=== PATIENT | male | born 1935 | race Caucasian/White ===

== ENCOUNTER 2021-09-02 11:32 | Emergency (ER) | payer OTHER, MEDICARE ==
[~2021-09-02] VITALS: Ht 182.9 cm; Wt 95.5 kg
[~2021-09-02 11:32] MED LIST: ALB0.5UD IH; ALBU18HF2 IH; BUDE10.2 INH; CARV3.1289 PO; CHOL100046 PO; DAPT500V6 IV; DILT-91 PO; LOSA25TA96 PO; MULT-1085 PO; SPIIN INH; WARF-113 PO; [UNRECOGNIZED DRUG - OTHER] NS
[2021-09-02] MEDS ORDERED: methylPREDNISolone sod succ 125mg/2ml vial IV ONE (11:55)
[2021-09-02] MEDS ORDERED: albuterol 2.5 MG/3 ML nebule CONTNEB PRN (11:55)
[2021-09-02 12:15] LABS: BASOPHILS % (AUTO) 0.4 % (0-1); EOSINOPHILS # (AUTO) 0.1 X10'3 (0-0.9); EOSINOPHILS % (AUTO) 1.5 % (0-6); HEMATOCRIT 38.9 % (42.0-52.0); HEMOGLOBIN 12.7 g/dl (14.0-17.9); LYMPHOCYTES # (AUTO) 0.5 X10'3 (1.1-4.8); LYMPHOCYTES % (AUTO) 7.1 % (21-51); MEAN CORPUSCULAR HEMOGLOBIN 28.4 PG (27.0-31.0); MEAN CORPUSCULAR HGB CONC 32.8 g/dL (33.0-36.5); MEAN CORPUSCULAR VOLUME 86.8 FL (78-98); MEAN PLATELET VOLUME 8.4 FL (7.4-10.4); MONOCYTES # (AUTO) 0.7 X10'3 (0-0.9); MONOCYTES % (AUTO) 10.1 % (2-12); NEUTROPHILS # (AUTO) 5.7 X10'3 (1.8-7.7); NEUTROPHILS % (AUTO) 80.9 % (42-75); PLATELET COUNT 193 X10'3 (140-440); RED BLOOD COUNT 4.48 X10'6 (4.70-6.10); RED CELL DISTRIBUTION WIDTH 15.7 % (11.5-14.5); WHITE BLOOD COUNT 7.1 X10'3 (4.5-11.0)
[2021-09-02 12:31] LABS: ALANINE AMINOTRANSFERASE 24 U/L (12-78); ALBUMIN 3.3 G/DL (3.4-5.0); ALBUMIN/GLOBULIN RATIO 0.9 (1.1-1.5); ALKALINE PHOSPHATASE 44 IU/L (46-116); ANION GAP 7 (8-16); ASPARTATE AMINO TRANSFERASE 18 U/L (10-37); BLOOD UREA NITROGEN 16 MG/DL (7-18); BUN/CREATININE RATIO 18.4 (5.4-32.0); CALCIUM 8.8 MG/DL (8.5-10.1); CHLORIDE 101 MMOL/L (99-107); CREATININE 0.87 MG/DL (0.60-1.10); GLUCOSE 107 MG/DL (70-104); POTASSIUM 4.2 MMOL/L (3.5-5.1); SODIUM 136 MMOL/L (135-145); TOTAL CARBON DIOXIDE 27.7 MMOL/L (24-32); TOTAL PROTEIN 6.9 G/DL (6.4-8.2); eGFR 84 ML/MIN
[2021-09-02 12:39] LABS: BILIRUBIN,TOTAL 0.7 MG/DL (0.1-1.0)
[2021-09-02] MEDS ORDERED: furosemide 10 MG/1 ML 10ml inj IV ONE (12:55)
--- NOTE | 2021-09-02 13:03 | NUR ---
PT USING URINAL AT THIS TIME. AT THE BEDSIDE.
[2021-09-02] MEDS ORDERED: ipratropium/albuterol 3ml nebule NEB ONE (13:25)
[2021-09-02 14:18] VITALS: BP 152/92
== END 2021-09-02 14:37 | disposition home or self-care (01) ==
LOC: ER 11:33
DX: J45.901 Unspecified asthma with (acute) exacerbation (principal); J96.10 Chronic respiratory failure, unspecified whether with hypoxia or hypercapnia; I48.91 Unspecified atrial fibrillation; I10 Essential (primary) hypertension; Z87.01 Personal history of pneumonia (recurrent); Z86.718 Personal history of other venous thrombosis and embolism; Z88.1 Allergy status to other antibiotic agents; Z88.8 Allergy status to other drugs, medicaments and biological substances; Z79.899 Other long term (current) drug therapy
CPT/HCPCS: 36415; 71045; 80053; 83880; 85025; 93005; 94640; 94644; 96374; 96375; 99285; J1940; J2930; 94760; A7015

== ENCOUNTER 2023-02-27 05:35 | Day surgery (SDC) | payer MEDICARE, OTHER ==
[2023-02-21 14:37] LABS: BASOPHILS % (AUTO) 0.2 % (0-1); EOSINOPHILS % (AUTO) 0.5 % (0-6); LYMPHOCYTES # (AUTO) 0.5 X10'3 (1.1-4.8); LYMPHOCYTES % (AUTO) 6.4 % (21-51); MEAN CORPUSCULAR HEMOGLOBIN 28.7 PG (27.0-31.0); MEAN CORPUSCULAR HGB CONC 32.4 g/dL (33.0-36.5); MEAN CORPUSCULAR VOLUME 88.4 FL (78-98); MEAN PLATELET VOLUME 8.3 FL (7.4-10.4); MONOCYTES # (AUTO) 0.4 X10'3 (0-0.9); MONOCYTES % (AUTO) 5.7 % (2-12); NEUTROPHILS # (AUTO) 6.8 X10'3 (1.8-7.7); NEUTROPHILS % (AUTO) 87.2 % (42-75); PRE OP HEMATOCRIT 38.1 % (42.0-52.0); PRE OP HEMOGLOBIN 12.3 g/dL (14.0-17.9); PRE OP PLATELET COUNT 206 X10'3 (140-440); RED BLOOD COUNT 4.31 X10'6 (4.70-6.10); RED CELL DISTRIBUTION WIDTH 16.2 % (11.5-14.5)
[2023-02-21 14:52] LABS: ALBUMIN 3.3 G/DL (3.4-5.0); ALKALINE PHOSPHATASE 48 IU/L (46-116); BLOOD UREA NITROGEN 18 MG/DL (7-18); BUN/CREATININE RATIO 19.1 (10.0-20.0); CALCIUM 9.1 MG/DL (8.5-10.1); CHLORIDE 103 MMOL/L (99-107); CREATININE 0.94 MG/DL (0.60-1.10); PRE OP ALT 25 U/L (30-65); PRE OP ANION GAP 7 (8-16); PRE OP AST 19 U/L (10-37); PRE OP GLUCOSE 128 MG/DL (70-104); PRE OP POTASSIUM 4.6 MMOL/L (3.4-5.1); PRE OP SODIUM 139 MMOL/L (135-145); TOTAL CARBON DIOXIDE 29.5 MMOL/L (24-32); TOTAL PROTEIN 6.6 G/DL (6.4-8.2); eGFR 76 ML/MIN
[2023-02-21 14:58] LABS: PRE OP BILIRUB, TOTAL 0.4 MG/DL (0.0-1.0)
[2023-02-27] VITALS (8 sets, daily range): BP systolic 130–144; BP diastolic 82–96
[~2023-02-27] VITALS: Ht 218.4 cm; Wt 106.6 kg
[~2023-02-27 05:35] MED LIST changes: +ALEN70TA60 PO; -BUDE10.2 INH; -CARV3.1289 PO; +DABI150C PO; -DAPT500V6 IV; -DILT-91 PO; +FLUT1BLS9 INH; -MULT-1085 PO; +PREDNISONE PO; -WARF-113 PO; -[UNRECOGNIZED DRUG - OTHER] NS; +clindamycin-Cleocin 900mg/D5W 50 ML IV ONE; +famotidine 20mg tablet PO ONE; +ringers solution, lacted 1,000 ML IV SCH
[2023-02-27] MEDS ORDERED: BUPIVAcaine/PF 2.5 mg/ml (0.25%) 30ml vial ONE (06:43)
[2023-02-27] MEDS ORDERED: LIDOcaine 1% 30ml preserv. free vial ONE (08:14)
[2023-02-27] MEDS ORDERED: fentaNYL/PF 50MCG/1 ML 2ML syringe ONE (08:23)
[2023-02-27] MEDS ORDERED: MIDAZolam 1 MG/ML 5ML VIAL ONE (08:24)
[2023-02-27] MEDS ORDERED: BUPIVAcaine/PF 2.5 mg/ml (0.25%) 30ml vial IJ ONE (08:47)
--- NOTE | 2023-02-27 09:02 | NUR ---
Received from OR via [facility] to [facility] , accompanied by Anesthesiologist DR MENDOZA and report given by Anesthesiolgist. PT PRESENT RYAN PIV 20G LEFT AC, RIGHT HAND DRESSING AND RIGHT ELBOW DRESSING CDI, VSS. Addendum: 02/27/23 at 0913 by Benita Bender RN, RN Amended: Links added.
--- NOTE | 2023-02-27 09:52 | NUR ---
DC HOME: ABLE TO SAFELY AMBULATE AND TRANSFER SELF. IV TAKEN OUT WITHOUT ANY COMPLICATIONS. ALL DISCHARGE INSTRUCTIONS COVERED WITH PATIENT AND ALL QUESTIONS ANSWERED. PATIENT TAKEN OUT VIA WHEELCHAIR TO PERSONAL VEHICLE WHERE FAMILY/FRIEND DROVE PATIENT HOME. Addendum: 02/27/23 at 1002 by Benita Bender RN, RN Amended: Links added.
== END 2023-02-27 09:52 | disposition home or self-care (01) ==
LOC: PAS 05:35
PROVIDERS: ATTEND Orthopaedic Surgery Hand Surgery
DX: G56.01 Carpal tunnel syndrome, right upper limb (principal); G56.21 Lesion of ulnar nerve, right upper limb; G47.30 Sleep apnea, unspecified; I48.91 Unspecified atrial fibrillation; I10 Essential (primary) hypertension; M19.90 Unspecified osteoarthritis, unspecified site; M81.0 Age-related osteoporosis without current pathological fracture; N40.0 Benign prostatic hyperplasia without lower urinary tract symptoms; R73.03 Prediabetes; J44.9 Chronic obstructive pulmonary disease, unspecified; Z85.46 Personal history of malignant neoplasm of prostate; Z88.0 Allergy status to penicillin; Z88.1 Allergy status to other antibiotic agents; Z88.8 Allergy status to other drugs, medicaments and biological substances; Z79.899 Other long term (current) drug therapy; Z79.84 Long term (current) use of oral hypoglycemic drugs; Z96.652 Presence of left artificial knee joint; Z98.890 Other specified postprocedural states; Z99.81 Dependence on supplemental oxygen; Z86.718 Personal history of other venous thrombosis and embolism
CPT/HCPCS: 36415; 64718; 64721; 80053; 82948; 85025; 93005; J2250; J3010; J3490; J7030; J7120; Z7506; Z7512; A4215; A4615; A6449

== ENCOUNTER 2023-03-27 05:31 | Day surgery (SDC) | payer MEDICARE, OTHER ==
[2023-03-20 14:01] LABS: BASOPHILS % (AUTO) 0.2 % (0-1); EOSINOPHILS % (AUTO) 0.5 % (0-6); LYMPHOCYTES # (AUTO) 0.4 X10'3 (1.1-4.8); LYMPHOCYTES % (AUTO) 4.3 % (21-51); MEAN CORPUSCULAR HEMOGLOBIN 28.8 PG (27.0-31.0); MEAN CORPUSCULAR HGB CONC 32.8 g/dL (33.0-36.5); MEAN PLATELET VOLUME 8.5 FL (7.4-10.4); MONOCYTES # (AUTO) 0.5 X10'3 (0-0.9); MONOCYTES % (AUTO) 5.5 % (2-12); NEUTROPHILS # (AUTO) 7.3 X10'3 (1.8-7.7); NEUTROPHILS % (AUTO) 89.5 % (42-75); PRE OP HEMATOCRIT 37.4 % (42.0-52.0); PRE OP HEMOGLOBIN 12.3 g/dL (14.0-17.9); PRE OP PLATELET COUNT 221 X10'3 (140-440); RED BLOOD COUNT 4.25 X10'6 (4.70-6.10); RED CELL DISTRIBUTION WIDTH 16.1 % (11.5-14.5)
[2023-03-20 14:09] LABS: ALBUMIN 3.2 G/DL (3.4-5.0); ALBUMIN/GLOBULIN RATIO 0.9 (1.1-1.5); ALKALINE PHOSPHATASE 53 IU/L (46-116); BLOOD UREA NITROGEN 17 MG/DL (7-18); BUN/CREATININE RATIO 18.3 (10.0-20.0); CHLORIDE 104 MMOL/L (99-107); CREATININE 0.93 MG/DL (0.60-1.10); PRE OP ALT 28 U/L (30-65); PRE OP ANION GAP 12 (8-16); PRE OP AST 16 U/L (10-37); PRE OP BILIRUB, TOTAL 0.6 MG/DL (0.0-1.0); PRE OP GLUCOSE 157 MG/DL (70-104); PRE OP POTASSIUM 4.4 MMOL/L (3.4-5.1); PRE OP SODIUM 140 MMOL/L (135-145); TOTAL CARBON DIOXIDE 24.3 MMOL/L (24-32); TOTAL PROTEIN 6.8 G/DL (6.4-8.2); eGFR 77 ML/MIN
[2023-03-27] VITALS (7 sets, daily range): BP systolic 114–132; BP diastolic 67–92
[~2023-03-27] VITALS: Ht 182.9 cm; Wt 102.0 kg
[~2023-03-27 05:31] MED LIST changes: +LIDOcaine 1% 30ml preserv. free vial ONE; +METF-900 PO; +albuterol 2.5 MG/3 ML nebule NEB ONE
[2023-03-27] MEDS ORDERED: BUPIVAcaine/PF 2.5 mg/ml (0.25%) 30ml vial ONE (07:13)
[2023-03-27] MEDS ORDERED: MIDAZolam 1 MG/ML 5ML VIAL ONE (07:15)
[2023-03-27] MEDS ORDERED: ringers solution, lacted 1,000 ML IV SCH (07:15)
[2023-03-27] MEDS ORDERED: ondansetron/PF 4mg/2ml inj IV PRN (07:15)
[2023-03-27] MEDS ORDERED: hydrALAZINE 20mg/ml inj. IV PRN (07:15)
[2023-03-27] MEDS ORDERED: morphine 2 MG/ML inj. syringe IV PRN (07:15)
[2023-03-27] MEDS ORDERED: LIDOcaine 0.5% (5mg/ml) 50ml vial ONE (07:15)
[2023-03-27] MEDS ORDERED: fentaNYL/PF 50MCG/1 ML 2ML syringe ONE (07:15)
[2023-03-27] MEDS ORDERED: morphine 4 MG/ML inj SYRINge IV PRN (07:15)
[2023-03-27] MEDS ORDERED: BUPIVAcaine/PF 2.5 mg/ml (0.25%) 30ml vial IJ ONE (07:54)
--- NOTE | 2023-03-27 08:11 | NUR ---
Received from OR via [facility], accompanied by Anesthesiologist and report given by CHRISTIANO Anesthesiologist. PATIENT WAKING UP, NO S/S OF PAIN, V/S WNL, SCD ON, PIV 20G TO RIGHT AC, LEFT WRIST AND ELBOW DRESSING C/D/I. ICE AND ELEVATED LUE. Addendum: 03/27/23 at 0835 by Karel Velasquez RN Amended: Links added.
--- NOTE | 2023-03-27 09:06 | NUR ---
ALL DISCHARGE CRITERIA HAS BEEN MET. VSS, PAIN AT A TOLERABLE LEVEL, ABLE TO SAFELY AMBULATE AND TRANSFER SELF. IV TAKEN OUT WITHOUT ANY COMPLICATIONS. ALL DISCHARGE INSTRUCTIONS COVERED WITH PATIENT AND ALL QUESTIONS ANSWERED. PATIENT TAKEN OUT VIA WHEELCHAIR WITH ALL BELONGINGS TO PERSONAL VEHICLE WHERE FAMILY DROVE PATIENT HOME. Addendum: 03/27/23 at 0913 by Karel Velasquez RN Amended: Links added.
[2023-03-29] MEDS ORDERED: propofol 10mg/ml 20ml vial IV ONE (07:52)
[2023-03-29] MEDS ORDERED: rocuronium 10mg/ml inj IV ONE (07:52)
[2023-03-29] MEDS ORDERED: CEFAZOLIN 2 GM injection ONE (07:52)
[2023-03-29] MEDS ORDERED: VANCOMYCIN 1500 MG IV ONE (07:52)
[2023-03-29] MEDS ORDERED: protamine sulf. 10mg/ml inj. IV ONE (07:52)
[2023-03-29] MEDS ORDERED: aminocaproic acid 250 MG/1 ML inj. ONE (07:52)
[2023-03-29] MEDS ORDERED: heparin 1,000 units/ml 10ml inj ONE (07:52)
== END 2023-03-27 09:06 | disposition home or self-care (01) ==
LOC: PAS 05:31
PROVIDERS: ATTEND Orthopaedic Surgery Hand Surgery
DX: G56.02 Carpal tunnel syndrome, left upper limb (principal); G56.22 Lesion of ulnar nerve, left upper limb; J44.9 Chronic obstructive pulmonary disease, unspecified; I10 Essential (primary) hypertension; Z79.899 Other long term (current) drug therapy; Z88.0 Allergy status to penicillin; Z96.652 Presence of left artificial knee joint; Z89.422 Acquired absence of other left toe(s)
CPT/HCPCS: 36415; 64718; 64721; 80053; 82948; 85025; 94640; A6222; A6258; J2250; J3010; J3490; J7030; J7120; Z7506; Z7512; A4215; A6449